=== PATIENT | male | born 1975 | race Caucasian/White ===

== ENCOUNTER 2019-01-04 16:17 | Emergency (ER) | payer OTHER, SELFPAY ==
[2019-01-04 16:19] VITALS: BP 144/84; PULSE 87; RESP 17; TEMP 36.7; O2SAT 96; BMI 33.8
--- NOTE | 2019-01-04 16:27 | ED.RN ---
PT STATES HE DOES NOT WANT TO WAIT THAT LONG TO BE SEEN, SO HE IS GOING TO GO HOME. IF ANYTHING GETS WORSE HE STATES HE WILL BE BACK.
--- NOTE | 2019-01-04 16:58 | ED.RN ---
PT LEFT WITHOUT BEING SEEN
== END 2019-01-04 16:58 ==
LOC: ED 16:50
PROVIDERS: Emergency Provider Emergency Medicine; Family Provider Internal Medicine; PCP Internal Medicine
DX: R42 Dizziness and giddiness (principal)

== ENCOUNTER 2023-03-18 08:21 | Emergency (ER) | payer BC, SELFPAY ==
[2023-03-18 08:22] VITALS: BP 152/102; PULSE 102; RESP 16; TEMP 36.6; O2SAT 97; BMI 38.9
--- NOTE | 2023-03-18 08:28 | EKG12_ITS ---
Test Reason : CP Blood Pressure : / mmHG Vent. Rate : 089 BPM Atrial Rate : 089 BPM P-R Int : 154 ms QRS Dur : 084 ms QT Int : 344 ms P-R-T Axes : 040 054 031 degrees QTc Int : 418 ms Normal sinus rhythm Normal ECG Confirmed by RYAN CRUZ MD ([id number]), food editor GLORIA PACHECO ([id number]) on 03/20/2023 8:38:56 AM Referred By: Confirmed By:RYAN CRUZ MD
--- OUTSIDE RECORDS SUMMARY | 2023-03-18 09:17 | XMS RPT_ITS | CCD ---
Author Name Unknown Address [address] [place] [address] Organization [facility] Care Team Providers Care Magnet Maker Name Role Phone PHYSICIAN, NONE Primary Care Physician Rm Dominguez MD Primary Care Provider RM BLACKBURN Referring RM Dominguez Primary Care RM Dominguez Attending RM Dominguez Primary Care Unavailab kothari Medications Current Medications Medication Drug Class(es) Dates Sig (Normalized) Sig (Original) lidocaine 0.05 mg/mg medicated patch (1 source) Antiarrhythmic, Amide Local Anesthetic Start: 03-08-2021 End: 03-18-2021 lidocaine 5% topical patch Apply 1 patch(es), Topical, Daily, # 10 patch(es), 0 Refill(s), ID Start Date: 03/08/21 Stop Date: 03/18/21 Status: Ordered ondansetron 4 mg oral tablet, disintegrating (1 source) Start: 03-08-2021 End: 03-11-2021 ondansetron 4 mg oral tablet, disintegrating Dose : 4 mg = 1 tab(s), Oral, TID, X 3 day(s), # 10 tab(s), 0 Refill(s), 03/11/21 20:28:00 EST, COVID-19 Start Date: 03/08/21 Stop Date: 03/11/21 Status: Ordered Problems Active Problems Problem Classification Problem Date Documented Date Episodic/Chronic Disorders usually diagnosed in infancy, childhood, or adolescence (1 source) Attention deficit hyperactivity disorder, predominantly inattentive type; Translations: [Other specified behavioral and emotional disorders with onset usually occurring in childhood and adolescence] Onset: 01-10-2014 01-10-2014 Chronic Other endocrine disorders (1 source) Testicular hypofunction; Translations: [Testicular hypofunction] Onset: 12-11-2008 12-11-2008 Chronic Other male genital disorders (1 source) Secondary erectile dysfunction; Translations: [Male erectile dysfunction, unspecified] Onset: 12-11-2008 12-11-2008 Chronic Residual codes; unclassified (1 source) Family history of cardiac disorder; Translations: [Family history of ischemic heart disease and other diseases of the circulatory system] 01-28-2020 Episodic Substance-related disorders (1 source) Nicotine dependence; Translations: [Nicotine dependence, chewing tobacco, uncomplicated] 01-28-2020 Chronic Past or Other Problems Problem Classification Problem Date Documented Da te Episodic/Chronic Other acquired deformities (1 source) Spondylolisthesi s; Translations: [Spondylolisthes is, site unspecified] Onset: 03-26-2010 03-08-2021 Episodic Syncope (1 source) Near syncope; Translations: [Syncope and collapse] Onset: 05-11-2020 05-11-2020 Episodic Viral infection (1 source) Disease caused by 2019-nCoV; Translations: [COVID-19] Onset: 03-08-2021 Results Test Name Value Interpretation Reference Range Facil ity Vital Signs Date Time Vital Sign Value Performing Clinician Facility 03-08-2021 18:52-0500 Heart rate 96 /min DR MYLES CRENSHAW MD [facility] 03-08-2021 18:52-0500 Respiratory rate 18 /min DR MYLES CRENSHAW MD [facility] 03-08-2021 18:12-0500 Body temperature 100.04 [degF] DR MYLES CRENSHAW MD [facility] 03-08-2021 18:12-0500 Diastolic blood pressure 97 mm[Hg] DR MYLES CRENSHAW MD [facility] 03-08-2021 18:12-0500 Heart rate 122 /min DR MYLES CRENSHAW MD [facility] 03-08-2021 18:12-0500 Respiratory rate 18 /min DR MYLES CRENSHAW MD [facility] 03-08-2021 18:12-0500 Systolic blood pressure 161 mm[Hg] DR MYLES CRENSHAW MD [facility] Encounters Encounter Date Encounter Type Care Provider Facility Start: 01-31-2022 Telephone encounter Zoraida peng CONCRETE PIPE MACHINE OPERATOR.CLINICAL WRITER Work Phone: [facility] Plan of Treatment Date Care Activity Detail Author Start: 01-26-2027 LIPID SCREEN LIPID SCREEN [facility] Start: 01-26-2025 DIABETES SCREEN DIABETES SCREEN [facility] Start: 01-26-2023 COLORECTAL CANCER SCREENING COLORECTAL CANCER SCREENING [facility] Immunizations Immunization Date Immunization Notes Care Provider Corina johnson 01-10-2014 influenza, seasonal, injectable Zoraida Montemayor CONCRETE PIPE MACHINE OPERATOR.BEVERLY Work Phone: [facility] 04-15-2010 influenza virus vacc ine, unspecified formulation Zoraida Montemayor CONCRETE PIPE MACHINE OPERATOR.CLINICAL WRITER Work Phone: [facility] Payers Date Payer Category Payer Unknown [employer] PPO OOS [id number] 2019-Present [phone] [address] [place] [address] PPO [id number] 2019 Unknown [id number] Social History Date Type Detail Facility Start: 03-08-2021 Never smoked t obacco (finding) [facility] Sex Assigned At [facility] [place] Start: 01-26-2022 Tobacco smoking stat us NHIS Ex-smoker [facility] End: 12-14-2003 History of tobacco use Current smoker [facility] End: 12-14-2003 History of tobacco use Cigarette Smoker [facility] Start: 01-26-2022 Cigarettes smoked current (pack per day) - Reported 1 [facility] Start: 01-26-2022 Tobacco use and exposure User of smokeless tobacco [facility] History of tobacco use Chews Tobacco [facility] Start: 01-26-2022 Alcohol intake Current non-dr research affiliate of alcohol (finding) [facility] Start: 01-25-2022 History SDOH Alcohol Frequency 1 [facility] Start: 01-25-2022 History SDOH Alcohol Std Drinks 0 [facility] Start: 01-25-2022 History SDOH Social Connections Phone 5 [facility] Start: 01-25-2022 History SDOH Social Connections Get Together 2 [facility] Start: 01-25-2022 History SDOH Social Connections [facility] Start: 01-25-2022 History SDOH Physica l Activity DPW 4 [facility] Start: 01-25-2022 History SDOH Physica l Activity MPS 6 [facility] Start: 01-26-2022 Tobacco Comment 1 can per day for 25 years [facility] Start: 1975 Sex Assigned At Male C [facility] Start: 01-16-2022 End: 01-26-2022 Exposure to SARS-CoV-2 (event) Not sure [facility] Note 01-31-2022 Telephone Encounter - Radhika Noel LPN - 01/31/2022 3:21 PM ESTTelephone Encounter - DERRICK Davidson - 01/31/2022 2:34 PM ESTTelephone Encounter - Zoraida Montemayor APRN.CNP - 01/31/2022 12:18 PM EST Note Date & Type Note Facility 01-31-2022 Miscellaneous Notes Formattin g of this note might be different from the original. ----- Message from Rm Blackburn MD sent at 01/31/2022 8:41 AM EST ----- Wound culture growing staph. Sensitive to Bactrim DS as prescribed. Looks like he did not follow up with general surgery for I&D of abscess. Recommend he schedule with them or with us to recheck the wound in the next 1-2 days. Phone call placed to patient. Voices understanding of provider instructions. DERRICK Davidson He should complete entire course of antibiotics. Zoraida Montemayor APRN.BEVERLY Patient telephoned. He said he hasn't seen general surgery and says he probably won't due to lack of time. Says area is getting better. Patient will call and schedule with nutrition at his earliest convenience. Lizeth Allison LPN What general surgeon did he see? He has order in computer for nutrition already. He can schedule at his convenience. Zoraida Montemayor APRN.BEVERLY Pt called and is notified of providers results and instructions. Pt voices understanding. Pt states he has seen general surgery. He states that with the antibiotic it looks much better. 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 Pt reports he is interested in seeing a real estate agent/broker, as a truck driving he states he has gained 30 lbs in the labs year, and he wants to get more healthy. Please call and advise. Janeth Mirza RN Please call patient and let him know his wound culture shows bacterial growth susceptible to antibiotic he is taking. Did he see general surgery as recommended? Blood work shows A1c of 5.7% which in prediabetic range. Recommend lower carbohydrate diet along with at least 150 minutes of exercise per week. LDL ( bad cholesterol) elevated. Along with diet and exercise above recommend lower fat diet as well. Zoraida Montemayor APRN.BEVERLY documented in this encounter [facility] Progress note 01-26-2022 Note Date & Type Note Facility 01-26-2022 Note HNO ID: [id number] Author: Rm Blackburn MD Service: ? Author Type: Physician Type: Progress Notes Filed: 01/27/2022 12:45 PM Note Text: Chief Complaint Patient presents with: Physical Weight Problem: Life changes have a big part, would like some help. Job change, lost son in August. HPI [place] Alvares is a 46 year old male who presents here today for evaluation for multiple concerns. Patient states that he has gained about 45 lbs in the last year and would like help with weight loss. 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 States that his 16 year old son in August from MVA and used to walk 18 holes with him every day. States that he eats fast food about once per day, but does bring health snacks with him. Would like referral to dietitian. Also requesting labs to check for DM since his brother is diabetic. Denies polyphagia, polydipsia, polyuria, vision changes, neuropathy, Complaining of joint pain all over since he has gained the 45 lbs. Denies red, hot, or swollen joints. No recent falls/injuries. Notes that he could sleep all day. If he sits down on the couch he will immediately fall asleep and was actually asleep before I walked into the room this morning. Admits to loud snoring. Denies reported apneic episodes. Still grieving the loss of his son, but states that he is doing OK . Has been seeing family counseling at [facility] with last meeting last night. Does not feel like he needs medication at this time. Denies SI/HI. Chewing 1 can every other day. Not ready to quit today. Refusing colon cancer screening. Past medical history, appointments, medications, allergies reviewed. Previous Medical History PAST MEDICAL HISTORY Diagnosis Date Arthralgia Chewing tobacco nicotine dependence Family history of heart disease in brother History of smoking Obesity (BMI 30-39.9) Previous Surgical History PAST SURGICAL HISTORY Procedure Laterality Date OPTX ANKLE DISLOCATION W/REPAIR/INT/XTRNL FIXJ ORIF wrist with plates PAST SURGICAL HISTORY OF 2003 plate fused in neck PAST SURGICAL HISTORY OF 10/12/2015 Vasectomy reversal VASECTOMY UNI/BI SPX W/POSTOP SEMEN EXAMS 2005 Family History FAMILY HISTORY Problem Relation Age of Onset None Mother Heart Attack Brother 49 Heart disease Maternal Grandmother Heart disease Maternal Grandfather No Known Problems Son No Known Problems Son No Known Problems Daughter No Known Problems Daughter Diabetes Other Hypertension Other Patient Allergies ALLERGIES No Known Allergies Current Medications No current outpatient medications on file prior to visit. No current facility-administered medications on file prior to visit. Social History Social History Tobacco Use Smoking status: Former Packs/day: 1.00 Years: 16.00 Pack years: 16.00 Types: Cigarettes Quit date: 12/14/2003 Years since quittin.1 Smokeless tobacco: Current Types: Chew Tobacco comments: 1 can per day for 25 years Substance Use Topics Alcohol use: No Drug use: No Review of Symptoms REVIEW OF SYSTEMS GENERAL: No weight loss, malaise or fevers HEENT: Negative for frequent or significant headaches, No changes in hearing or vision, no nose bleeds or other nasal problems NECK: Negative for lumps, goiter, pain and significant neck swelling RESPIRATORY: Negative for cough, hemoptysis, wheezing, COPD, dyspnea or shortness of breath CARDIOVASCULAR: Negative for chest pain, leg swelling, hypertension, CHF or palpitations GI: No nausea, vomiting, or diarrhea : No history of dysuria, frequency or incontinence MUSCULOSKELETAL: Negative for joint pain or swelling, back pain or muscle pain SKIN: abscess in left axilla x 3 days. Able to express pus at home. Not treating with anything OTC. EXAM: BP 124/78 Pulse 83 Resp 16 Ht 172.4 cm (5' 7.87 ) Wt 112.6 kg (248 lb 3.2 oz) SpO2 98% BMI 37.88 kg/m? General Appearance: Well appearing, alert, in no acute distress, well-hydrated, well nourished.. Skin: 5 x 2 cm abscess in left axilla with mild fluctuance, erythema. No streaking. Able to express purulent material from center of the abscess which will be sent for culture. . Head: Normocephalic, no masses, lesions, tenderness or abnormalities. Eyes: Anicteric sclera. Pupils are equally round and reactive to light. Extraocular movements are intact. . Ears: External ears normal, canals clear. Oropharynx: Lips, mucosa, and tongue normal, teeth and gums normal, oropharynx normal. Neck: Supple, no adenopathy; thyroid symmetric, normal size, no bruits. Lungs: Lungs clear to auscultation. No wheezing, rhonchi, rales.. Heart: RRR without murmur, gallop, or rubs. No ectopy. Abdomen: Normal abdominal exam, Abdomen soft, non-tender. Bowel sounds normal. No masses, organomegaly. Extremities: No deformities, edema, skin discoloration, clubbing or (more content not included)... [facility] Discharge instructions 03-08-2021 Note Date & Type Note Facility 03-08-2021 Hospital Discharg e instructions Patient Education 03/08/2021 20:29:24 COVID-19 Prevent the Spread of COVID-19 If You Are Sick (07/30/2019)(CUSTOM) Prevent the Spread of COVID-19 If You Are Sick Accessible version: https://www.cdc.gov/coronaviru s/2019-ncov/yi-vds-cbt-sick/st cbo-xlqp-onvz.html If you are sick with COVID-19 or think you might have COVID-19, follow the steps below to help protect other people in your home and community. Stay home except to get medical care. Stay home. Most people with COVID-19 have mild illness and are able to recover at home without medical care. Do not leave your home, except to get medical care. Do not visit public areas. Take care of yourself. Get rest and stay hydrated. Get medical care when needed. Call your doctor before you go to their office for care. But, if you have trouble breathing or other concerning symptoms, call 911 for immediate help. Avoid public transportation, ride-sharing, or taxis. Separate yourself from other people and pets in your home. As much as possible, stay in a specific room and away from other people and pets in your home. Also, you should use a separate bathroom, if available. If you need to be around other people or animals in or outside of the home, wear a cloth face covering. See COVID-19 and Animals if you have questions about pets: https://www.cdc.gov/coronaviru s/2019ncov/faq.html#LDDHO31lvd mals Monitor your symptoms. Common symptoms of COVID-19 include fever and cough. Trouble breathing is a more serious symptom that means you should get medical attention. Follow care instructions from your healthcare provider and local health department. Your local health authorities will give instructions on checking your symptoms and reporting information. If you develop emergency warning signs for COVID-19 get medical attention immediately. Emergency warning signs include*: Trouble breathing Persistent pain or pressure in the chest New confusion or not able to be woken Bluish lips or face *This list is not all inclusive. Please consult your medical provider for any other symptoms that are severe or concerning to you. Call 911 if you have a medical emergency. If you have a medical emergency and need to call 911, notify the protective signal operator that you have or think you might have, COVID-19. If possible, put on a facemask before medical help arrives Call ahead before visiting your doctor. Call ahead. Many medical visits for routine care are being postponed or done by phone or telemedicine. If you have a medical appointment that cannot be postponed, call your doctor s office. This will help the office protect themselves and other patients. If you are sick, wear a cloth covering over your nose and mouth. You should wear a cloth face covering over your nose and mouth if you must be around other people or animals, including pets (even at home). You don t need to wear the cloth face covering if you are alone. If you can t put on a cloth face covering (because of trouble breathing for example), cover your coughs and sneezes in some other way. Try to stay at least 6 feet away from other people. This will help protect the people around you. Note: During the COVID-19 pandemic, medical grade facemasks are reserved for healthcare workers and some first responders. You may need to make a cloth face covering using a scarf or bandana. Cover your coughs and sneezes. Cover your mouth and nose with a tissue when you cough or sneeze. Throw used tissues in a lined trash can. Immediately wash your hands with soap and water for at least 20 seconds. If soap and water are not available, clean your hands with an alcohol-based hand machine fixer that contains at least 60% alcohol. Clean your hands often. Wash your hands often with soap and water for at least 20 seconds. This is especially important after blowing your nose, coughing, or sneezing; going to the bathroom; and before eating or preparing food. Use hand machine fixer if soap and water are not available. Use an alcohol-based hand machine fixer with at least 60% alcohol, covering all surfaces of your hands and rubbing them together until they feel dry. Soap and water are the best option, especially if your hands are visibly dirty. \ Avoid touching your eyes, nose, and mouth with unwashed hands. Avoid sharing personal household items. Do not share dishes, drinking glasses, cups, eating utensils, towels, or bedding with other people in your home. Wash these items thoroughly after using them with soap and water or put them in the gastroenterology manager. Clean all high-touch surfaces everyday. Clean and disinfect high-touch surfaces in your sick room and bathroom. Let someone else clean and disinfect surfaces in common areas, but not your bedroom and bathroom. If a caregiver or other person needs to clean and disinfect a sick person s bedroom or bathroom, they should do so on an as-needed basis. The caregiver/other person should wear a mask and wait as long as possible after the sick person has used the bathroom High-touch surfaces include phones, remote controls, counters, tabletops, doorknobs, bathroom fixtures, toilets, keyboards, tablets, and bedside tables. Clean and disinfect areas that may have blood, stool, or body fluids on them. Use household house fellow and disinfectants. Clean the area or item with soap and water or another detergent if it is dirty. Then use a household disinfectant. Be sure to follow the instructions on the label to ensure safe and effective use of the product. Many products recommend keeping the surface wet for several minutes to ensure germs are killed. Many also recommend precautions such as wearing gloves and making sure you have good ventilation during use of the product. Most EPA-registered household disinfectants should be effective. How to discontinue home isolation. People with COVID-19 who have stayed home (home isolated) can stop home isolation under the following conditions: If you will not have a test to determine if you are still contagious, you can leave home after these three things have happened: You have had no fever for at least 72 hours (that is three full days of no fever without the use of medicine that reduces fevers) AND other symptoms have improved (for example, when your cough or shortness of breath has improved) AND at least 10 days have passed since your symptoms first appeared. If you will be tested to determine if you are still contagious, you can leave home after these three things have happened: You no longer have a fever (without the use of medicine that reduces fevers) AND other symptoms have improved (for example, when your cough or shortness of breath has improved) AND you received two negative tests in a row, 24 hours apart. Your doctor will follow CDC guidelines. In all cases, follow the guidance of your healthcare provider and local health department. The decision to stop home isolation should be made in consultation with your healthcare provider and state and local health departments. Local decisions depend on local circumstances. cdc.gov/coronavirus Follow Up Care 03/08/2021 18:06:28 With:MARILEE ALLISON MD Address: When:2-4 days [facility] Evaluation + Plan note Note Date & Type Note Facility Evaluation + Plan note No data available for this section [facility] Summary Purpose Family History No Family History Records FoundNo Family History Records FoundNo Family History Records Found Advance Directives No Advanced Directives Records FoundNo Advanced Directives Records FoundNo Advanced Directives Records Found Additional Source Comments (unrecognized sect ion and content) No Status Records FoundNo Status Records FoundNo Status Records Found INFORMATION SOURCE (unrecogn ized section and content) DATE CREATED AUTHOR AUTHOR'S ORGANIZ ATION 03/09/2021 [facility] ([place]) DATE CREATED AUTHOR AUTHOR'S ORGANIZ ATION 02/09/2022 [facility] Source Comments (unrecognize d section and content) In the event this informatio n is protected by the Federal Confidentiality of Alcohol and Drug Abuse Patient Records regulations: The Federal rules restrict any use of the information to criminally investigate or prosecute any alcohol or drug abuse patient.[facility] Reason for Visit (unrecogniz ed section and content) Care Teams (unrecognized sec tion and content) FOR RECORDS PERTAINING TO PATIENTS WHO ARE OR HAVE BEEN ENROLLED IN A CHEMICAL DEPENDENCY/SUBSTANCEABUSE PROGRAM, SOME INFORMATION MAY BE OMITTED. This clinical summary was aggregated from multiple sources. Caution should be exercised in using it in the provision of clinical care. This summary normalizes information from multiple sources, and as a consequence, information in this document may materially change the coding, format and clinical context of patient data. In addition, data may be omitted in some cases. CLINICAL DECISIONS SHOULD BE BASED ON THE PRIMARY CLINICAL RECORDS. [employer] provides no warranty or guarantee of the accuracy or completeness of information in this document.
[2023-03-18 09:28] LABS: Absolute Lymphocyte Count 0.62 X10^3/uL (0.83-4.51); Absolute Neutrophil Count 7.2 X10^3/uL (2.0-7.7); Basophil# 0.01 X10^3/uL; Basophil% 0.1 % (0-1); Eosinophil# 0.09 X10^3/uL; Eosinophils% 1.1 % (0-5); Hematocrit 45.1 % (40-54); Hemoglobin 15.1 g/dL (13.0-16.5); Lymphocyte # 0.62 X10^3/ul (0.83-4.51); Lymphocyte % 7.4 % (19-41); Mean Corp Hgb Conc 33.5 g/dL (32-36); Mean Corpuscular Hgb 30.6 pg (27.0-32.0); Mean Corpuscular Volume 91.3 fL (80-94); Mean Platelet Vol. 10.6 fl (6.2-12.0); Monocyte# 0.35 X10^3/uL; Monocyte% 4.2 % (0-10); NRBC Flagged by Analyzer 0 % (0-5); Neutrophil # 7.24 X10^3/uL (2.7-7.7); Neutrophil % 86.7 % (47-70); Platelet Count 179 K/mm3 (150-450); RBC Distribution Width CV 11.8 % (11.6-14.6); RBC Distribution Width SD 39.2 fl (35.1-43.9); Red Blood Count 4.94 M/mm3 (4.6-6.2); White Blood Count 8.4 K/mm3 (4.4-11.0)
--- NOTE | 2023-03-18 09:35 | RAD_ITS ---
STUDY: X-RAY CHEST REASON FOR EXAM: Male, 47 years old. chest pain TECHNIQUE: Single AP portable view of the chest. COMPARISON: March 08, 2021 FINDINGS: The lungs are clear and expanded. There is no demonstrated pleural abnormality. Normal size heart. Normal mediastinum and rodri. Normal visualized pulmonary arteries. Normal visualized aortic arch and descending thoracic aorta. Normal visualized thoracic spine. Normal visualized ribs, clavicles, and shoulders. There is no demonstrated abnormality of the visualized soft tissue structures of the upper abdomen. RAD/Chest 1 View (Portable) IMPRESSION: Normal x-ray examination of the chest. Electronically Signed: Misbah Chambers MD at 10:26 EST ,
--- NOTE | 2023-03-18 09:41 | CT_ITS ---
STUDY: CT ABDOMEN AND PELVIS WITH CONTRAST REASON FOR EXAM: Male, 47 years old. Abdominal pain RADIATION DOSAGE (If Supplied By Facility): CTDIvol = ( 16.74 ) mGy, DLP = ( 1288.21 ) mGycm TECHNIQUE: Transaxial images were obtained from the dome of the diaphragm to the symphysis pubis without oral contrast. ml of 100mL Isovue-300 contrast was administered. Sagittal and coronal images were reconstructed. Individualized dose optimization techniques were used for this CT. COMPARISON: None. FINDINGS: The visualized lung bases are unremarkable. The visualized portions of the heart are within normal limits. Normal liver. Normal gallbladder and extrahepatic biliary system. There is mild splenomegaly. Normal pancreas. Normal bilateral adrenal glands. Normal right kidney. Normal left kidney. Normal visualized stomach. Normal small intestine. Normal colon. The appendix is visualized and appears normal. No free air or free fluid or bowel dilatation is seen. No demonstrated hydronephrosis or large renal stones. There is diffuse atherosclerotic calcification of the abdominal aorta, without a demonstrated aneurysm. Normal inferior vena cava. Normal retroperitoneum. Normal urinary bladder. Normal abdominal wall. There are diffuse degenerative changes of the visualized lumbar spine. CT/Abdomen/Pelvis W IV Cont ONLY IMPRESSION: 1. No acute or significant process of the abdomen or pelvis. 2. Mild splenomegaly. Electronically Signed: Misbah Chambers MD at 10:35 EST ,
--- NOTE | 2023-03-18 09:41 | EX.ED.DYSGE1 ---
HPI History of Present Illness Chief Complaint: Chest Pain Narrative Narrative: 47-year-old male presenting with abdominal pain. He states it started about 430 this morning. He describes it as epigastric but then describes it as diffuse abdominal pain similar to gas pains. He states his pain is currently 7/8 of 10. Patient states he had some chronic abdominal distention and feeling like his stomach is hard for months now. 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 He states he had a bowel movement today but does not have regular bowel movements. He is not using any laxatives. He states has tried fiber 1 bar. No fevers, chills, cough. Patient states he became panicked and was not sure if he was having chest pain today but now after resting he states it seems like it was all his abdomen. No history of cardiac disease. Patient currently comfortable sitting in the bed. [facility] Medical History Encounter for screening for COVID-19 HTN (hypertension) Home Medications levofloxacin 750 mg tablet 750 mg PO DAILY #10 tabs 03/08/21 [Rx Last Taken Unknown] Allergy/AdvReac Type Severity Reaction Status Date / Time No Known Allergies Allergy Verified 03/18/23 08:22 Surgical History History of neck surgery History of surgery on arm Social History Smoking Status: Unknown if ever smoked alcohol intake: never ROS ROS ED Constitutional Constitutional ED: Denies chills, fever(s) or sweats Eyes Eyes: Denies blurry vision or change in vision ENT ENT ED: Denies ear pain or sore throat Cardiovascular Cardiovascular: Reports chest pain; Denies palpitations or racing heartbeat Respiratory/Chest Respiratory/Chest: Denies cough, dyspnea or sputum Gastrointestinal Gastrointestinal: Reports abdominal pain and nausea; Denies constipation, diarrhea or vomiting Genitourinary Genitourinary ED: Denies dysuria, hematuria or urinary frequency Musculoskeletal Musculoskeletal: Denies arthralgias, myalgias or neck pain Integumentary Denies abscess, Abrasions or rash Neurologic Neurologic: Denies headache(s), paresthesias or weakness Psychiatric Psychiatric: Denies anxiety, depression, suicidal ideation or suicidal thoughts Endocrine Endocrinology: Denies polydipsia or polyuria EXAM Physical Exam Const Vital Signs: 03/18/23 08:22 Temperature 97.8 F Temperature Source Temporal Pulse Rate 102 H Respiratory Rate 16 Blood Pressure 152/102 H Blood Pressure Mean 118 Pulse Ox 97 Oxygen Delivery Method Room Air Positive well nourished General Appearance ED: NAD; Negative for pallor HEENT Reports moist mucous membranes Eyes PERRL and EOMs intact bilaterally Chest Wall inspection of chest normal and palpation of chest normal Resp normal respiratory effort and clear to auscultation bilaterally Auscultation: Negative for rales, rhonchi or wheezes Cardio regular rate and regular rhythm GI GI Narrative: Diffusely tender Neuro oriented x3 and CN's II-XII intact bilaterally Psych mental status grossly normal Skin no rashes or lesions noted and no wounds General Skin Exam: Negative for jaundice or pallor MDM MDM MDM Narrative Medical decision making narrative: Presenting with abdominal pain which is new. He states he had a hard distended abdomen for months and eats mostly fast food and does not have normal bowel movements but today his abdomen hurts and that is not normal for him. He states he became anxious and feels like he might of had some chest pain although he states now he does not believe it is in his chest. Original includes ACS, pneumonia, costochondritis, gastritis, GERD, epic ulcer disease, pancreatitis, cholelithiasis, cholecystitis, dehydration, anemia, colitis. CBC was obtained to assess white blood cell count, hemoglobin, platelets. CMP to assess liver function, renal function, electrolytes, glucose. Lipase to assess for pancreatitis. EKG and high-sensitivity troponin to assess for cardiac ischemia. Chest x-ray to rule out pneumonia or other abnormality. Patient declines analgesia at this time. Will obtain a CT of the abdomen pelvis with IV contrast. CBC, CMP unremarkable. High-sensitivity opponent 6. Delta troponin 5. EKG on my interpretation shows sinus rhythm with a ventricular rate 89 bpm without sign of ischemic change or ectopy. Chest ray my interpretation shows no acute process. Radiology interprets this and agrees. CT of the abdomen pelvis negative for acute findings. Patient counseled on all results. I feel he is stable for home. All questions were answered. Discharged stable condition. Impression: 1. Chest pain 2. Abdominal pain Lab Data Attestation: I reviewed the patient's lab results. Labs: Laboratory Results - last 24 hr 03/18/23 03/18/23 09:17 11:30 WBC 8.4 RBC 4.94 Hgb 15.1 Hct 45.1 MCV 91.3 MCH 30.6 MCHC 33.5 RDW Std Deviation 39.2 RDW Coeff of Nancy 11.8 Plt Count 179 MPV 10.6 Immature Gran % (Auto) 0.500 Neut % (Auto) 86.7 H Lymph % (Auto) 7.4 L Otoe % (Auto) 4.2 Eos % (Auto) 1.1 Baso % (Auto) 0.1 Absolute Neuts (auto) 7.2 Absolute Lymphs (auto) 0.62 L Nucleated RBC % 0 Sodium 139 Potassium 3.8 Chloride 107 Carbon Dioxide 28.0 Anion Gap 4 L BUN 12 Creatinine 0.96 Estim Creat Clear Calc 91.04 Est GFR (MDRD) Af Amer 107 Est GFR (MDRD) Non-Af 89 BUN/Creatinine Ratio 12.5 Glucose 125 H Calcium 8.9 Total Bilirubin 0.50 Direct Bilirubin 0.14 AST 27 ALT 53 Alkaline Phosphatase 47 Troponin I High Sens 6 5 Total Protein 7.2 Albumin 3.7 Globulin 3.5 Lipase 15 Radiography Diagnostic Testing: Clinical Impression(s) from Imaging Studies Chest X-Ray 03/18/23 09:35 IMPRESSION: Normal x-ray examination of the chest. Electronically Signed: Misbah Chambers MD at 10:26 EST Reading Location ID and State: [address] [place] [address] , Service support , Abdomen/Pelvis CT 03/18/23 09:41 IMPRESSION: 1. No acute or significant process of the abdomen or pelvis. 2. Mild splenomegaly. Electronically Signed: Misbah Chambers MD at 10:35 EST , Discharge Plan Triage Chief Complaint: Chest Pain ED Provider: Dennis Downing Dx/Rx/DC Orders Instructions: ED Chest Pain, Noncardiac, ED Abdominal Pain Unkn Cause Male... Prescriptions: No Action levofloxacin 750 mg tablet 750 mg PO DAILY Qty: 10 0RF Primary Care Provider: Care Physician,No Primary Referrals: See Odell MD [Med Staff - Active Staff] - 3-5 Days Care Physician,No Primary [Primary Care Provider] - Disposition Disposition: Home, Self Care
[2023-03-18 09:48] LABS: AST(SGOT) 27 U/L (15-37); Alanine Aminotransfer ALT/SGPT 53 U/L (16-61); Albumin, Serum 3.7 g/dL (3.2-5.0); Alkaline Phosphatase 47 U/L (45-117); Anion Gap 4 (5-15); BUN 12 mg/dL (7-18); BUN/Creat Ratio 12.5 RATIO (10-20); Bilirubin, Direct 0.14 mg/dL (0.00-0.30); Calcium,Total 8.9 mg/dL (8.5-10.1); Chloride 107 mmol/L (98-107); Creatinine, Serum 0.96 mg/dL (0.70-1.30); EST Glomerular Filtration Rate 89 mL/min (>60); Est Glom Filt Rate - Afr Amer 107 mL/min (>60); Estimated Creatinine Clearance 91.04 ml/min; Globulin 3.5 g/dL (2.2-4.2); Glucose 125 mg/dL (74-106); Lipase 15 U/L (13-75); Potassium 3.8 mmol/L (3.5-5.1); Protein, Total 7.2 g/dL (6.4-8.2); Sodium Level 139 mmol/L (136-145); Troponin-I HS (w/2H Reflex) 6 pg/mL (3.0-78.0)
[2023-03-18 11:24] LABS: Reflex Troponin-HS? (from REC) Y
[2023-03-18 12:01] LABS: Troponin-I HS 5 pg/mL (3.0-78.0)
[2023-03-18 12:19] VITALS: BP 130/89; PULSE 86; RESP 16; O2SAT 99
[2023-03-18 12:21] VITALS: BP 130/89; PULSE 88; RESP 21; O2SAT 93
== END 2023-03-18 12:31 | disposition home or self-care (01) ==
PROVIDERS: Emergency Provider Student in an Organized Health Care Education/Training Program; Visit Provider Student in an Organized Health Care Education/Training Program
DX: R07.9 Chest pain, unspecified (principal); R10.9 Unspecified abdominal pain; I10 Essential (primary) hypertension
CPT/HCPCS: 71045; 74177; 80048; 80076; 83690; 84484; 85025; 93005; 99283; Q9967; A4216

== ENCOUNTER → 2023-05-06 | Outpatient (CLI) | payer BC, SELFPAY ==
--- OUTSIDE RECORDS SUMMARY | 2023-05-06 08:50 | XMS RPT_ITS | CCD ---
Author Name Unknown Address [address] [place] [address] Organization [facility] Care Team Providers Care Remarketing Manager Name Role Phone PHYSICIAN, NONE Primary Care Physician Unavailab Rm Villafuerte MD Primary Care Provider RM BLACKBURN Primary Care Unavailab saniya Medications Current Medications Medication Drug Class(es) Dates Sig (Normalized) Sig (Original) lidocaine 0.05 mg/mg medicated patch (1 source) Antiarrhythmic, Amide Local Anesthetic Start: 03-08-2021 End: 03-18-2021 lidocaine 5% topical patch Apply 1 patch(es), Topical, Daily, # 10 patch(es), 0 Refill(s), COVID-19 Start Date: 03/08/21 Stop Date: 03/18/21 Status: [...] rate 96 /min DR MYLES CRENSHAW MD [facility] 03-08-2021 18:52-0500 Respiratory rate 18 /min DR MYLES CRENSHAW MD [facility] 03-08-2021 18:12-0500 Body temperature 100.04 [degF] DR MYLES CRENSHAW MD [facility] 03-08-2021 18:12-0500 Diastolic blood pressure 97 mm[Hg] DR MYLES CRENSHAW MD [facility] 03-08-2021 18:12-0500 Heart rate 122 /min DR MYLES CRENSHAW MD [facility] 03-08-2021 18:12-0500 Respiratory rate 18 /min DR MYLES CRENSHAW MD [facility] 03-08-2021 18:12-0500 Systolic blood pressure 161 mm[Hg] DR MYLES CRENSHAW MD [facility] Encounters Encounter Date Encounter Type Care Provider Facility Start: 03-18-2023 End: 03-18-2023 ambulatory RM [facility] Facility:[facility] Start: 01-31-2022 Telephone encounter Zoraida peng APRN.BEVERLY Work Phone: [facility] Plan of Treatment Date Care Activity Detail Author Start: 01-26-2027 LIPID SCREEN LIPID SCREEN [facility] Start: 01-26-2025 DIABETES SCREEN DIABETES SCREEN [facility] Start: 01-26-2023 COLORECTAL CANCER SCREENING COLORECTAL CANCER SCREENING [facility] Immunizations Immunization Date Immunization Notes Care Provider Fa [facility] 01-10-2014 influenza, seasonal, injectable Zoraida Montemayor PLATING MACHINE OPERATORLISA Work Phone: [facility] 04-15-2010 influenza virus vacc ine, unspecified formulation Zoraida Montemayor PLATING MACHINE OPERATOR.HYDROTREATER OPERATOR Work Phone: [facility] Payers Date Payer Category Payer Unknown [employer] PPO OOS [id number] 2019-Present [phone] [id number] [place] [address] PPO [id number] 2019 Unknown [id number] Social History Date Type Detail Facility Start: 03-08-2021 Never smoked t obacco (finding) [facility] Sex Assigned At [facility] Start: 01-26-2022 Tobacco smoking stat us NHIS Ex-smoker [facility] End: 12-14-2003 History of tobacco use Current smoker [facility] End: 12-14-2003 History of tobacco use Cigarette Smoker [facility] Start: 01-26-2022 Cigarettes smoked current (pack per day) - Reported 1 [facility] Start: 01-26-2022 Tobacco use and exposure User of smokeless tobacco [facility] History of tobacco use Chews Tobacco [facility] Start: 01-26-2022 Alcohol intake Current non-dr script artist of alcohol (finding) [facility] Start: 01-25-2022 History SDOH Alcohol Frequency 1 [facility] Start: 01-25-2022 History SDOH Alcohol Std Drinks 0 [facility] Start: 01-25-2022 History SDOH Social Connections Phone 5 [facility] Start: 01-25-2022 History SDOH Social Connections Get Together 2 [facility] Start: 01-25-2022 History SDOH Social Connections Sikh 3 [facility] Start: 01-25-2022 History SDOH Physica l Activity DPW 4 [facility] Start: 01-25-2022 History SDOH Physica l Activity MPS 6 [facility] Start: 01-26-2022 Tobacco Comment 1 can per day for 25 years [facility] Start: 1975 Sex Assigned At Male [facility] Start: 01-16-2022 End: 01-26-2022 Exposure to SARS-CoV-2 (event) Not sure [facility] Progress note 03-18-2023 Note Date & Type Note Facility 03-18-2023 Note HNO ID: [id number] Author: SAVI JOSEPH APRN.HYDROTREATER OPERATOR Service: ? Author Type: Nurse Practitioner Type: Progress Notes Filed: 03/18/2023 08:30 Note Text: came in with complaints of restlessness last night very distended and firm abdomen. Patient is also having chest pressure and pain. Patient was immediately referred to the ER. Patient wants to take himself. [facility] Note 01-31-2022 Telephone Encounter - Radhika [...] complete entire course of antibiotics. Zoraida Montemayor APRN.CNP Patient telephoned. He said he hasn't seen general surgery and says he probably won't due to lack of time. Says area is getting better. Patient will call and schedule with nutrition at his earliest convenience. Lizeth Allison LPN What general surgeon did he see? He has order in computer for nutrition already. He can schedule at his convenience. Zoraida Montemayor APRN.CNP Pt called and is notified of providers results and instructions. Pt voices understanding. Pt states he has seen general surgery. He states that with the antibiotic it looks much better. 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 Pt reports he is interested in seeing a accountancy professor, as a trucker hand he states he has gained 30 lbs [...] Zoraida Montemayor APRN.BEVERLY documented in this encounter [facility] Discharge instructions 03-08-2021 Note Date & Type Note Facility 03-08-2021 Hospital Discharg e instructions Patient Education 03/08/2021 20:29:24 COVID-19 Prevent the Spread of COVID-19 If You Are Sick (07/30/2019)(CUSTOM) Prevent the Spread of COVID-19 If You Are Sick Accessible version: https://www.cdc.gov/coronaviru s/2019-ncov/zc-nge-zvd-sick/st uru-olwi-jtqr.html If you are sick with COVID-19 or [...] if you have questions about pets: https://www.cdc.gov/coronaviru s/2019ncov/faq.html#MRIHI61nuv maljason Monitor your symptoms. Common symptoms of COVID-19 [...] and need to call 911, notify the panel raiser operator that you have or think you [...] clean your hands with an alcohol-based hand software test technician that contains at least 60% alcohol. Clean your hands often. Wash your hands often with soap and water for at least 20 seconds. This is especially important after blowing your nose, coughing, or sneezing; going to the bathroom; and before eating or preparing food. Use hand software test technician if soap and water are not available. Use an alcohol-based hand software test technician with at least 60% alcohol, covering all [...] and water or put them in the commercial attache. Clean all high-touch surfaces everyday. Clean and [...] or body fluids on them. Use household stock turner and disinfectants. Clean the area or item [...] 18:06:28 With:MARILEE ALLISON MD Address: When:2-4 days [facility] Evaluation + Plan note Note Date & Type Note Facility Evaluation + Plan note No data available for this section [facility] Summary Purpose Family History No Family [...] DATE CREATED AUTHOR AUTHOR'S ORGANIZ ATION 03/09/2021 [facility] ([place]) DATE CREATED AUTHOR AUTHOR'S ORGANIZ ATION 03/19/2023 [facility] Source Comments (unrecognize d section and content) In the event this informatio n is protected by the Federal Confidentiality of Alcohol and Drug Abuse Patient Records regulations: The Federal rules restrict any use of the information to criminally investigate or prosecute any alcohol or drug abuse patient.[facility] Reason for Visit (unrecogniz ed section [...] BE BASED ON THE PRIMARY CLINICAL RECORDS. [employer] [facility]. provides no warranty or guarantee of the accuracy or completeness of information in this document.
[2023-05-06 09:42] LABS: Absolute Lymphocyte Count 1.69 X10^3/uL (0.83-4.51); Absolute Neutrophil Count 2.9 X10^3/uL (2.0-7.7); Basophil# 0.02 X10^3/uL; Basophil% 0.4 % (0-1); Eosinophil# 0.14 X10^3/uL; Eosinophils% 2.7 % (0-5); Hematocrit 44.3 % (40-54); Hemoglobin 14.7 g/dL (13.0-16.5); Lymphocyte # 1.69 X10^3/ul (0.83-4.51); Lymphocyte % 32.7 % (19-41); Mean Corp Hgb Conc 33.2 g/dL (32-36); Mean Corpuscular Hgb 30.5 pg (27.0-32.0); Mean Corpuscular Volume 91.9 fL (80-94); Mean Platelet Vol. 10.2 fl (6.2-12.0); Monocyte# 0.44 X10^3/uL; Monocyte% 8.5 % (0-10); NRBC Flagged by Analyzer 0 % (0-5); Neutrophil # 2.86 X10^3/uL (2.7-7.7); Neutrophil % 55.3 % (47-70); Platelet Count 244 K/mm3 (150-450); RBC Distribution Width CV 12.3 % (11.6-14.6); RBC Distribution Width SD 41.2 fl (35.1-43.9); Red Blood Count 4.82 M/mm3 (4.6-6.2); White Blood Count 5.2 K/mm3 (4.4-11.0)
[2023-05-06 10:25] LABS: ALB/GLOB Ratio 1.1 RATIO (0.9-2.4); AST(SGOT) 24 U/L (15-37); Alanine Aminotransfer ALT/SGPT 52 U/L (16-61); Albumin, Serum 3.7 g/dL (3.2-5.0); Alkaline Phosphatase 57 U/L (45-117); Anion Gap 4 (5-15); BUN 11 mg/dL (7-18); BUN/Creat Ratio 10.6 RATIO (10-20); Calcium,Total 9.2 mg/dL (8.5-10.1); Chloride 109 mmol/L (98-107); Cholesterol 175 mg/dL (200); Creatinine, Serum 1.04 mg/dL (0.70-1.30); EST Glomerular Filtration Rate 81 mL/min (>60); Est Glom Filt Rate - Afr Amer 98 mL/min (>60); Globulin 3.4 g/dL (2.2-4.2); Glucose 112 mg/dL (74-106); High Density Lipoprotein 43 mg/dL; Potassium 4.1 mmol/L (3.5-5.1); Protein, Total 7.1 g/dL (6.4-8.2); Sodium Level 141 mmol/L (136-145); Thyroid Stim Hormone (TSH) 0.82 uIU/mL (0.358-3.74); Triglycerides 91 mg/dL; Very Low Density Lipoprotein 18 mg/dL (5-40)
[2023-05-06 11:29] LABS: Hemoglobin A1c 6.3 % (3.8-5.6)
== END | disposition home or self-care (01) ==
LOC: LAB 08:48
PROVIDERS: Referring Provider Family Medicine; Visit Provider Family Medicine
DX: Z13.220 Encounter for screening for lipoid disorders (principal); R53.83 Other fatigue
CPT/HCPCS: 36415; 80053; 80061; 83036; 84403; 84443; 85025

== ENCOUNTER 2023-09-30 19:41 | Emergency (ER) | payer BC, SELFPAY ==
[2023-09-30 19:44] VITALS: BP 139/95; PULSE 86; RESP 16; TEMP 36.6; O2SAT 97; BMI 36.1
--- NOTE | 2023-09-30 19:59 | EX.ED.DYSGE1 ---
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 No injury. He is here to be checked for a blood clot. He has no history of DVT/PE and denies chest pain or shortness of breath. He takes no medications. PFSH <JOHN Olson - Last Filed: 09/30/23 20:28> [facility] Medical History Encounter for screening for COVID-19 HTN (hypertension) Home Medications ?Medication ?Instructions ?Recorded ?Last Taken ?Type NK 09/30/23 Unknown History Allergy/AdvReac Type Severity Reaction Status Date / Time No Known Allergies Allergy Verified 09/30/23 19:48 Surgical History History of neck surgery History of surgery on arm Social History Smoking Status: Current every day smoker tobacco type: smokeless tobacco alcohol intake: never ROS <JOHN Olson - Last Filed: 09/30/23 20:28> ROS ED ROS Narrative Constitutional: Negative for fever, chills, malaise. CVS: Negative for chest pain, syncope. Respiratory: Negative for shortness of breath. Neuro: Negative for motor/sensory dysfunction. Musc: Positive for left calf pain. No trauma. EXAM <JOHN Olson - Last Filed: 09/30/23 20:28> Physical Exam Narrative Exam Narrative: CONST: Patient sitting in no acute distress. EYES: Normal inspection. NECK: Normal inspection. RESP: No respiratory distress, CTAB. CVS: Regular rate and rhythm, no murmur, no gallop. SKIN: Color normal, no rash, warm, dry, intact. EXTREMITIES: Slight right calf edema as compared to left, tender over right upper calf and medial thigh without palpable cords. No overlying erythema or skin discoloration. Full range of motion of all joints, 5/5 strength, normal sensation, 2+ DP pulses. NEURO: Alert and answering questions appropriately. PSYCH: Normal affect. Const Vital Signs: 09/30/23 19:44 09/30/23 20:31 Temperature 97.8 F 97.2 F L Temperature Source Temporal Pulse Rate 86 82 Respiratory Rate 16 16 Blood Pressure 139/95 H 140/92 H Blood Pressure Mean 109 108 Pulse Ox 97 94 Oxygen Delivery Method Room Air <Amos Bailey MD - Last Filed: 09/30/23 20:58> Physical Exam Const Vital Signs: 09/30/23 19:44 09/30/23 20:31 Temperature 97.8 F 97.2 F L Temperature Source Temporal Pulse Rate 86 82 Respiratory Rate 16 16 Blood Pressure 139/95 H 140/92 H Blood Pressure Mean 109 108 Pulse Ox 97 94 Oxygen Delivery Method Room Air [facility] <JOHN Olson - Last Filed: 09/30/23 20:28> [facility] Narrative Medical decision making narrative: Patient has 2 days of localized pain and swelling in the right lower thigh and calf. He appears well and nontoxic, stable vital signs, normal cardiopulmonary exam. No CP/SOB. He does have localized edema and tenderness of the right lower extremity deep venous system of the calf. Extremity is neurovascularly intact. Ultrasound is not available on Monday night. 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 Risks of anticoagulation discussed. Patient was discharged in stable condition. <Amos Bailey MD - Last Filed: 09/30/23 20:58> [facility] Narrative Medical decision making narrative: Patient has 2 days of localized pain and swelling in the right lower thigh and calf. He appears well and nontoxic, stable vital signs, normal cardiopulmonary exam. No CP/SOB. He does have localized edema and tenderness of the right lower extremity deep venous system of the calf. Extremity is neurovascularly intact. Ultrasound is not available on Monday night. 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 Risks of anticoagulation discussed. Patient was discharged in stable condition. Dr. Bailey: I have personally performed a face to face assessment of the patient and have reviewed the CAREY Note. I performed a substantive portion of the visit including all aspects of the following. My swenson findings include: History is 2 days of right medial distal thigh and right medial calf pain and burning/stinging. No chest pain or shortness of breath. At risk for DVT as he is a long-distance truck hop. Exam is afebrile. Vital signs noted. Mild tenderness to palpation right medial calf, no erythema, no palpable cord. Medical Decision Making: Concern is for DVT. Also in the differential would be tendinitis/overuse of the right lower extremity. Through shared decision-making, we discussed anticoagulation for 12 hours in the form of Lovenox. He was told of the risk of increased bleeding/spontaneous bleeding and acknowledges an understanding. Outpatient ultrasound tomorrow. Return instructions to the emergency department were reviewed. Disposition is discharged home in stable condition. Other additions or changes: [None] History & Record Review Discussion w/independent historian: Patient Discharge Plan Triage Chief Complaint: Lower Extremity Injury ED Midlevel Provider: Kym Chavez ED Provider: Amos Bailey Dx/Rx/DC Orders Clinical Impression: Right calf pain Instructions: DVT Dc Prescriptions: No Action NK Other Ambulatory Orders: Venous Duplex US, Unilateral (Stat) Facility: [facility] - Location: [facility] Ordered By: Kym Chavez Primary Care Provider: Nikita Hernandez Referrals: Nikita eHrnandez MD [Primary Care Provider] - Activity Restrictions/Additional Instructions: You were given a Lovenox shot which is a blood thinner to treat the possibility of a blood clot in your right leg. Return tomorrow to have the ultrasound done. Print Language: Khmer Disposition Disposition: Home, Self Care Discharge Date/Time: 09/30/23 20:35
[2023-09-30 20:31] VITALS: BP 140/92; PULSE 82; RESP 16; TEMP 36.2; O2SAT 94
[2023-09-30] MEDS: Enoxaparin 120 MG/0.8 ML Syringe 110 MG SC (20:33)
== END 2023-09-30 20:35 | disposition home or self-care (01) ==
LOC: ED 20:14
PROVIDERS: Emergency Provider Emergency Medicine; PCP Family Medicine; Visit Provider Emergency Medicine
DX: M79.661 Pain in right lower leg (principal); R60.0 Localized edema; X58.XXXA Exposure to other specified factors, initial encounter; F17.220 Nicotine dependence, chewing tobacco, uncomplicated
CPT/HCPCS: 96372; 99282

== ENCOUNTER → 2023-10-01 | Outpatient (CLI) | payer BC, SELFPAY ==
--- NOTE | 2023-10-01 10:22 | VDLE_ITS ---
Reason For Study: PAIN RIGHT LEFT GSV is normal. CFV is compressible, spontaneous, phasic, CFV is compressible, spontaneous, phasic, competent, and demonstrates normal competent and demonstrates normal augmentation. augmentation. FV is compressible, spontaneous, phasic, competent and demonstrates normal augmentation. POP V is compressible, spontaneous, phasic, competent and demonstrates normal augmentation. T/P Trunk is compressible. PTV is compressible. RT PerV is compressible. Procedure This is a venous duplex using B-mode, color flow and spectral Doppler. Exam performed in department. The exam was diagnostic. A preliminary report was called and/or faxed to DR. Hernandez @ [phone] @ 10:50 am. VL/Venous Duplex US, Unilateral Interpretation Summary Deep veins of the right lower extremity are patent and compressible segmentally . There is no evidence of right lower extremity deep vein thrombosis. Valvular competence wendy ears intact within the proximal deep venous system on the right . The right great saphenous vein a ppears patent and compressible segmentally. The left common femoral vein is patent and compressib le . Ordering Physician: Kym Chavez Referring Physician: Nikita Hernandez Performed By: Deandra Stevens, PETEY, RVT
== END | disposition home or self-care (01) ==
PROVIDERS: PCP Family Medicine; Visit Provider Physician Assistant
DX: M79.605 Pain in left leg (principal)
CPT/HCPCS: 93971

== ENCOUNTER → 2024-07-06 | Outpatient (CLI) | payer BC, SELFPAY ==
[2024-07-06 07:43] LABS: Absolute Lymphocyte Count 1.56 X10^3/uL (0.83-4.51); Absolute Neutrophil Count 3.7 X10^3/uL (2.0-7.7); Basophil# 0.01 X10^3/uL; Basophil% 0.2 % (0-1); Eosinophil# 0.13 X10^3/uL; Eosinophils% 2.2 % (0-5); Hematocrit 44.9 % (40-54); Hemoglobin 15.5 g/dL (13.0-16.5); Lymphocyte # 1.56 X10^3/ul (0.83-4.51); Lymphocyte % 26.5 % (19-41); Mean Corp Hgb Conc 34.5 g/dL (32-36); Mean Corpuscular Volume 92.6 fL (80-94); Mean Platelet Vol. 10.2 fl (6.2-12.0); Monocyte# 0.45 X10^3/uL; Monocyte% 7.7 % (0-10); NRBC Flagged by Analyzer 0 % (0-5); Neutrophil # 3.71 X10^3/uL (2.7-7.7); Neutrophil % 63.1 % (47-70); Platelet Count 208 K/mm3 (150-450); RBC Distribution Width CV 12.4 % (11.6-14.6); RBC Distribution Width SD 42.4 fl (35.1-43.9); Red Blood Count 4.85 M/mm3 (4.6-6.2); White Blood Count 5.9 K/mm3 (4.4-11.0)
[2024-07-06 08:23] LABS: ALB/GLOB Ratio 1.5 RATIO (0.9-2.4); AST(SGOT) 32 U/L (<=37); Alanine Aminotransfer ALT/SGPT 48 U/L (<=46); Albumin, Serum 4.3 g/dL (3.5-5.0); Alkaline Phosphatase 53 U/L (40-129); Anion Gap 10 (5-15); BUN 13 mg/dL (4-19); BUN/Creat Ratio 12.1 RATIO (10-20); Calcium,Total 9.6 mg/dL (7.6-11.0); Chloride 105 mmol/L (98-108); Cholesterol 154 mg/dL (<=200); Creatinine, Serum 1.04 mg/dL (0.70-1.20); EST Glomerular Filtration Rate 88 (>60); Globulin 2.9 g/dL (2.2-4.2); Glucose 125 mg/dL (70-99); High Density Lipoprotein 39 mg/dL; Low Density Lipoprotein Calc. 102 mg/dL; Potassium 4.5 mmol/L (3.3-5.1); Protein, Total 7.2 g/dL (5.9-8.4); Sodium Level 142 mmol/L (133-145); Total Bilirubin 0.29 mg/dL (0.00-1.30); Triglycerides 67 mg/dL; Very Low Density Lipoprotein 13 mg/dL (5-40); cholesterol:hdl ratio screen 3.96
[2024-07-06 08:50] LABS: Thyroid Stim Hormone (TSH) 0.847 uIU/mL (0.300-4.200); Vitamin D,25 Hydroxy 18.2 ng/mL (30-100)
== END | disposition home or self-care (01) ==
LOC: LAB 06:57
PROVIDERS: PCP Family Medicine; Referring Provider Family Medicine; Visit Provider Family Medicine
DX: Z13.220 Encounter for screening for lipoid disorders (principal); E66.9 Obesity, unspecified; F41.9 Anxiety disorder, unspecified; R53.83 Other fatigue; R73.03 Prediabetes; Z68.39 Body mass index [BMI] 39.0-39.9, adult
CPT/HCPCS: 80053; 80061; 82306; 82533; 83036; 84403; 84443; 85025